=== PATIENT | male | born 1940 | race Caucasian/White ===

== ENCOUNTER 2022-09-15 17:52 | Emergency (ER) | payer MEDICARE, OTHER, SELFPAY ==
[2022-09-15] VITALS (7 sets, daily range): BP systolic 133–153; BP diastolic 61–74; PULSE 79–88; RESP 18; TEMP 36.6; O2SAT 82–100; BMI 25.0
--- NOTE | 2022-09-15 18:40 | DI.US.S_ITS ---
PROCEDURE: US PERIPH VENOUS LOW EXTREM LT INDICATIONS: SWELLING TECHNIQUE: Real-time imaging, as well as color and pulse Doppler interrogation, were performed of the lower extremity deep veins from the inguinal ligament to the popliteal fossa. COMPARISON: None. FINDINGS: The common femoral, femoral and popliteal veins are normally compressible, and free of intraluminal thrombus. Color and pulse Doppler demonstrate normal phasic intraluminal flow. There is normal augmentation response to distal compression maneuver. Moderate soft tissue edema can be seen within the left calf and ankle. Note is made of arterial plaque. IMPRESSION: Negative for deep venous thrombosis. Dictated by: Mateo Christine M.D. on 09/15/2022 at 19:30 Approved by: Mateo Christine M.D. on 09/15/2022 at 19:30
--- NOTE | 2022-09-15 22:41 | ED.EXTPRO ---
HPI - Extremity Problem General Chief complaint: Extremity Problem,Nontraumatic Stated complaint: L leg swelling Time Seen by Provider: 09/15/22 22:37 Source: patient Mode of arrival: Ambulatory History of Present Illness HPI Narrative: Patient is a rosi 82-year-old male history of atrial fibrillation on Eliquis presenting today with left leg pain and swelling. He reports that he woke up noticed flag was a little bit more swollen. He was able to work in the garden without any significant difficulty. He is not had any redness chest pain or shortness of breath. He traveled in july. Related Data Home Medications Medication Instructions Recorded Confirmed MAGNESIUM OXIDE (#MAG-OX 400) 400 mg PO Q DAY ##0 12/15/10 CYANOCOBALAMIN (#VITAMIN B12) 500 mcg PO Q DAY ##0 03/24/11 dofetilide 250 mcg capsule 0.125 mg PO BID ##0 07/16/12 (Tikosyn) Previous Rx's Medication Instructions Recorded doxazosin 2 mg tablet (Cardura) 6 mg PO HS #270 tabs 07/04/16 lisinopril 20 mg tablet (Prinivil) 60 mg PO SEE INSTRUCTIONS #270 tabs 08/10/16 pioglitazone 15 mg-metformin 500 1 tab PO BID #180 tabs 09/20/16 mg tablet (Actoplus MET) apixaban 5 mg tablet (Eliquis) 5 mg PO BID #180 tabs 11/13/16 atorvastatin 40 mg tablet (Lipitor) 40 mg PO HS #90 tabs 11/24/16 Allergies Allergy/AdvReac Type Severity Reaction Status Date / Time amlodipine [AMLODIPINE] Allergy Severe SOB Verified 09/15/22 18:20 metoprolol [METOPROLOL] Allergy Intermediate HYPERTENSIO Verified 09/15/22 18:20 N/FATIGUE losartan AdvReac Verified 09/15/22 18:20 Review of Systems Review of Systems ROS Unobtainable: All systems reviewed & are unremarkable except as noted in HPI and below Patient History Surgical History Status post coronary artery bypass graft Status post knee surgery Family History Grandmother Heart disease Mother Alcoholic Grandfather Heart disease Social History (Reviewed 09/15/22 @ 22:48 by MALICK Adam Smoking Status: Never smoker Smoking Status: Never smoker alcohol intake frequency: 0-2 drinks per day Substance Use Type: does not use Exam Initial Vital Signs Initial Vital Signs: Vital Signs Temperature 97.8 F 09/15/22 18:17 Pulse Rate 88 09/15/22 18:17 Respiratory Rate 18 09/15/22 18:17 Blood Pressure 141/63 H 09/15/22 18:17 Pulse Oximetry 100 09/15/22 18:17 Oxygen Delivery Method Room Air 09/15/22 18:17 GENERAL: Well-appearing 82-year-old male and in no acute distress. HEENT: Head atraumatic,EOMI, pupils reactive, face symmetric, moist mucous membranes CARDIOVASCULAR: Regular rate and rhythm without murmurs, rubs or gallops. RESPIRATORY: Breath sounds equal bilaterally, no wheezes rales or rhonchi. EXTREMITIES: Normal range of motion, no clubbing or edema. Neurovascularly intact Left leg mildly swollen no significant erythema no significant tenderness on calf, knee is stable NEUROLOGICAL: Alert and oriented x4 SKIN: Warm, dry, no laceration, no petechiae, no rashes or lesions. Course Orders Ordered: ED Orders 09/15/22 18:40 US periph venous low extrem lt Stat Vital Signs Vital signs: Vital Signs - 8 hr 09/15/22 21:16 09/15/22 21:17 09/15/22 21:17 Pulse Rate 79 Blood Pressure 140/74 Pulse Oximetry 82 L 99 09/15/22 21:30 09/15/22 21:30 09/15/22 22:00 Pulse Rate 88 87 Blood Pressure 150/72 H Pulse Oximetry 99 99 09/15/22 22:01 09/15/22 22:01 09/15/22 22:30 Pulse Rate 86 Blood Pressure 133/61 153/70 H Pulse Oximetry 99 09/15/22 22:30 Pulse Rate 86 Blood Pressure Pulse Oximetry 98 MDM - Extremity (Nontraumatic) Imaging Data US - DVT: Radiologist's Impression: PROCEDURE:? US PERIPH VENOUS LOW EXTREM LT ? INDICATIONS:? SWELLING ? TECHNIQUE:? Real-time imaging, as well as color and pulse Doppler interrogation, were performed of the lower extremity deep veins from the inguinal ligament to the popliteal fossa.? ? COMPARISON:? None. ? FINDINGS:? The common femoral, femoral and popliteal veins are normally compressible, and free of intraluminal thrombus.? Color and pulse Doppler demonstrate normal phasic intraluminal flow.? There is normal augmentation response to distal compression maneuver. ? ? Moderate soft tissue edema can be seen within the left calf and ankle. ? Note is made of arterial plaque. ? ? IMPRESSION:? ? Negative for deep venous thrombosis. ? ? Dictated by: Mateo Christine M.D. on 09/15/2022 at 19:30 ? ? Approved by: Mateo Christine M.D. on 09/15/2022 at 19:3 MDM Narrative Medical decision making narrative: Patient 82-year-old male presenting today with 1 day of left leg swelling and discomfort. There is no significant swelling noted on exam minimal if any pain behind his calf he is already taking Eliquis for atrial fibrillation. No evidence of infection there is no erythema ultrasound is negative for DVT. Not having any chest pain or shortness of breath not consistent with congestive heart failure. At this time recommend conservative management watchful waiting no need for any further workup or intervention at this time Discharge Plan Departure Patient Disposition: Home Clinical Impression: Left leg pain Instructions: DI for Leg Pain Activity Restrictions/Additional Instructions: *You have been diagnosed with left leg pain *What to do: At this time ultrasound is negative no blood clot or infection present. Please elevate and ice and monitor. *Continue to take medications as directed *Follow up with your primary care provider in 2-3 days or call [phone] *Return to ER if you should have increasing pain swelling chest pain or shortness of breath or any new, worsening or concerning symptoms Prescriptions: No Action MAGNESIUM OXIDE (#MAG-OX 400) 400 mg PO Q DAY Qty: 0 CYANOCOBALAMIN (#VITAMIN B12) 500 mcg PO Q DAY Qty: 0 dofetilide [Tikosyn] 250 MCG capsule 0.125 mg PO BID Qty: 0 doxazosin [Cardura] 2 MG tablet 6 mg PO HS Qty: 270 1RF lisinopril [Prinivil] 20 MG tablet 60 mg PO SEE INSTRUCTIONS Qty: 270 1RF pioglitazone-metformin [Actoplus MET] 15 MG/500 MG tablet 1 tab PO BID Qty: 180 1RF apixaban [Eliquis] 5 MG tablet 5 mg PO BID Qty: 180 1RF atorvastatin [Lipitor] 40 MG tablet 40 mg PO HS Qty: 90 1RF Stand Alone Forms: Patient Portal/API
== END 2022-09-15 23:00 | disposition home or self-care (01) ==
PROVIDERS: Emergency Provider Emergency Medicine; Family Provider Internal Medicine Cardiovascular Disease
DX: M79.605 Pain in left leg (principal); Z79.01 Long term (current) use of anticoagulants
CPT/HCPCS: 93971; 99281; 99283